=== PATIENT | female | born 2005 | race Caucasian/White ===

== ENCOUNTER 2024-04-19 21:19 | Emergency (ER) | payer BC ==
[~2024-04-19] VITALS: Ht 165.1 cm; Wt 65.9 kg
[2024-04-19 21:24] VITALS: TEMP 98.6
[2024-04-19 21:36] VITALS: O2SAT 99
[2024-04-19 22:18] LABS: BASO % 0.3 % (0.0-2.0); EOS # 0.2 K/mm3 (0.0-0.7); EOS % 1.7 % (0.0-4.0); GRAN # 4.7 K/mm3 (1.4-6.5); GRAN % 48.8 % (42.2-75.2); HEMATOCRIT 41.4 % (35.0-45.0); LYMPH # 3.9 K/mm3 (1.2-3.4); LYMPH % 40.4 % (20.0-51.0); MEAN CELL VOLUME 90 fl (80.0-95.0); MEAN CORPUSCULAR HEMOGLOBIN 31 pg (26-32); MEAN CORPUSCULAR HGB CONC 34 g/dl (33.0-37.0); MEAN PLATELET VOLUME 10.8 fl (7.4-10.4); MONO # 0.8 K/mm3 (0.1-0.6); PLATELET COUNT 301 K/mm3 (130-400); RED BLOOD COUNT 4.58 M/mm3 (4.10-5.30); REDCELL DISTRIBUTION WIDTH-CV 11.5 % (11.5-14.5)
[2024-04-19 22:33] LABS: ALANINE AMINOTRANSFERASE 48 U/L (0-55); ALBUMIN 4.1 g/dL (3.5-5.0); ALKALINE PHOSPHATASE 84 U/L (40-150); ANION GAP 11 mmol/L (7-16); AST,SGOT 21 U/L (5-34); BILIRUBIN,TOTAL 0.3 mg/dL (0.2-1.2); BLOOD UREA NITROGEN 11 mg/dL (8-21); CALCIUM 9.6 mg/dL (8.4-10.2); CHLORIDE 104 mEq/L (98-107); CREATININE, serum 0.86 mg/dL (0.57-1.11); GLUCOSE 79 mg/dL (70-99); POTASSIUM 3.5 mEq/L (3.5-4.5); SODIUM 139 mEq/L (136-145); TOTAL PROTEIN 7.7 g/dl (6.2-8.1)
[2024-04-19 22:41] LABS: COLLECTION METHOD CLEAN CATCH
[2024-04-19 22:51] LABS: PH 6.5 (5.0-8.5); URINE APPEARANCE CLEAR (CLEAR/HAZY); URINE BLOOD NEGATIVE (NEGATIVE); URINE COLOR YELLOW (YELLOW); URINE GLUCOSE NEGATIVE (NEGATIVE); URINE KETONE TRACE (NEGATIVE); URINE NITRATE NEGATIVE (NEGATIVE); URINE PROTEIN(semi-quant) NEGATIVE (NEGATIVE)
[2024-04-19 22:53] LABS: THYROID STIMULATING HORMONE 2.543 uIU/mL (0.350-4.940)
[2024-04-19 22:58] LABS: TROPONIN-I < 0.010 ng/mL (0.00-0.033)
[2024-04-20 00:20] VITALS: BP 104/63; PULSE 90
== END 2024-04-20 00:20 | disposition home or self-care (01) ==
LOC: COL.ER 21:19 → EDBD 21:20 → COL.ER 21:20
PROVIDERS: Emergency Medicine
DX: R00.2 Palpitations (principal)